=== PATIENT | female | born 1955 | race Caucasian/White ===

== ENCOUNTER 2016-11-18 13:58 | Emergency (ER) | payer MEDICARE, MEDICAID ==
--- NOTE | 2016-11-18 15:15 | EDM.PDOC ---
ED HPI GENERAL MEDICAL PROBLEM - General Chief Complaint: Cardiovascular Problem Stated Complaint: RAPID HEART RATE Time Seen by Provider: 11/18/16 15:00 Source of Information: Reports: Patient, RN Notes Reviewed History Limitations: Reports: No Limitations - History of Present Illness INITIAL COMMENTS - FREE TEXT/NARRATIVE: 61 year old female presents to the ED with complaints of palpitations and racing heart rate. She has a history of SVT and was started on cardizem. She reported 3 episodes of palpitations in the past few weeks. Today the symptoms lasted around 10-15 minutes. Symptoms resolved upon arrival to the ER. She experiences pain with the palpitations but the pain resolves with the palpitations. She missed a cardizem dose two days ago. She denies dyspnea or shortness of breath. She was recently treated with antibiotics for an upper respiratory infection. No fever or chills, nausea, vomiting, diarrhea, or abdominal pain. Her PCP is Mariam Daniels. 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 She was supposed to have a Holter monitor applied 1-2 weeks ago but rescheduled. No history of CAD or [place]. She has not had a recent stress test. Chest Pain Score (Numeric/FACES): 4 - Related Data Allergies Allergy/AdvReac Type Severity Reaction Status Date / Time No Known Allergies Allergy Verified 11/18/16 14:21 Home Meds: Home Meds Albuterol [Ventolin HFA] 2 puff INH Q4H PRN 08/11/14 [History] LORazepam [Ativan] 1 mg PO Q8H PRN 08/11/14 [History] Ibuprofen 600 mg PO DAILY PRN 02/02/16 [History] Diltiazem HCl [Cardizem LA] 120 mg PO DAILY #30 tab.sr.24h 03/21/16 [Rx] Venlafaxine [Effexor] 75 mg PO DAILY 03/21/16 [History] Past Medical History HEENT History: Reports: Impaired Vision Other HEENT History: wears eyeglasses Cardiovascular History: Reports: Other (See Below) Other Cardiovascular History: states HR was over 200 BPM. Respiratory History: Reports: Asthma, Bronchitis, Recurrent, COPD, Pneumonia, Recurrent Other Respiratory History: states was tested for sleep apnea, "and I'm fine" states does not need C-PAP. 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 Hematologic History: Reports: Iron Deficiency Other Hematologic History: during . - Infectious Disease History Infectious Disease History: Reports: Measles, Mumps - Past Surgical History HEENT Surgical History: Reports: Myringotomy w Tube(s) Female Surgical History: Reports: Section, Hysterectomy Musculoskeletal Surgical History: Reports: Other (See Below) Other Musculoskeletal Surgeries/Procedures:: ankle surgery due to arthritis, pinned. Social & Family History - Tobacco Use Smoking Status *Q: Former Smoker Years of Tobacco use: 47 Packs/Tins Daily: 0.5 Used Tobacco, but Quit: Yes Month Tobacco Last Used: Oct - Caffeine Use Caffeine Use: Reports: None Other Caffeine Use: drinks 1/2 caff coffee - Alcohol Use Days Per Week of Alcohol Use: 1 Number of Drinks Per Day: 1 Total Drinks Per Week: 1 - Recreational Drug Use Recreational Drug Use: No ED ROS GENERAL - Review of Systems Review Of Systems: See Below Constitutional: Reports: No Symptoms. Denies: Fever, Chills, Diaphoresis HEENT: Reports: No Symptoms Respiratory: Reports: No Symptoms. Denies: Shortness of Breath, Cough Cardiovascular: Reports: Chest Pain, Palpitations. Denies: Blood Pressure Problem, Dyspnea on Exertion, Edema, Lightheadedness, Syncope GI/Abdominal: Reports: No Symptoms. Denies: Abdominal Pain, Diarrhea, Nausea, Vomiting Neurological: Reports: No Symptoms ED EXAM, GENERAL - Physical Exam Exam: See Below Exam Limited By: No Limitations General Appearance: Alert, No Apparent Distress, Obese Respiratory/Chest: No Respiratory Distress, Lungs Clear, Normal Breath Sounds, No Accessory Muscle Use, Chest Non-Tender Cardiovascular: Normal Peripheral Pulses, Regular Rate, Rhythm, No Edema, No Murmur GI/Abdominal: Normal Bowel Sounds, Soft, Non-Tender Neurological: Alert, Oriented, Normal Cognition Skin Exam: Warm, Dry, Intact EKG INTERPRETATION EKG Date: 11/18/16 Time: 14:33 Rhythm: NSR Rate (Beats/Min): 94 [place]: Normal P-Wave: Present QRS: Normal ST-T: Normal QT: Normal EKG Interpretation Comments: EKG read by Dr. Santa. QT is mildly prolonged. Otherwise normal ECG. Course - Vital Signs Last Recorded V/S: Last Vital Signs Temp 98.2 F 11/18/16 14:21 Pulse 100 11/18/16 17:10 Resp 16 11/18/16 17:10 BP 143/58 H 11/18/16 17:10 Pulse Ox 97 11/18/16 17:10 - Orders/Labs/Meds Orders: Active Orders 24 hr Category Date Time Status Cardiac Monitoring [RC] . DIRECTED Care 11/18/16 15:13 Active EKG 12 Lead [EKG Documentation Completion] [RC] STAT Care 11/18/16 14:30 Active Holter Monitor 48 Hours [RC] .PRN Care 11/18/16 15:55 Active CXR [Chest 1V Frontal] [CR] Stat Exams 11/18/16 15:13 Taken Labs: Laboratory Tests 11/18/16 11/18/16 Range/Units 14:20 14:20 WBC 7.94 (3.98-10.04) K/mm3 RBC 4.54 (3.98-5.22) M/mm3 Hgb 13.6 (11.2-15.7) gm/L Hct 40.5 (34.1-44.9) % MCV 89.2 (79.4-94.8) fl MCH 30.0 (25.6-32.2) pg MCHC 33.6 (32.2-35.5) g/dl RDW Std Deviation 49.5 H (36.4-46.3) fL Plt Count 328 (182-369) K/mm3 MPV 9.7 (9.4-12.3) fl Neut % (Auto) 47.7 (34.0-71.1) % Lymph % (Auto) 42.3 (19.3-51.7) % [place] % (Auto) 6.8 (4.7-12.5) % Eos % (Auto) 2.4 (0.7-5.8) Baso % (Auto) 0.5 (0.1-1.2) % Neut # (Auto) 3.79 (1.56-6.13) K/mm3 Lymph # (Auto) 3.36 (1.18-3.74) K/mm3 [place] # (Auto) 0.54 H (0.24-0.36) K/mm3 Eos # (Auto) 0.19 (0.04-0.36) K/mm3 Baso # (Auto) 0.04 (0.01-0.08) K/mm3 Sodium 140 (136-145) mEq/L Potassium 3.6 (3.5-5.1) mEq/L Chloride 104 (98-107) mEq/L Carbon Dioxide 23 (21-32) mEq/L Anion Gap 16.6 H (5-15) BUN 19 H (7-18) mg/dL Creatinine 0.9 (0.55-1.02) mg/dL Est Cr Clr Drug Dosing 52.57 mL/min Estimated GFR (MDRD) > 60 (>60) mL/min BUN/Creatinine Ratio 21.1 H (14-18) Glucose 160 H (74-106) mg/dL Calcium 9.0 (8.5-10.1) mg/dL Total Bilirubin 0.4 (0.2-1.0) mg/dL AST 19 (15-37) U/L ALT 41 (14-59) U/L Alkaline Phosphatase 62 (46-116) U/L Troponin I < 0.017 (0.00-0.056) ng/mL Total Protein 7.6 (6.4-8.2) g/dl Albumin 3.6 (3.4-5.0) g/dl Globulin 4.0 gm/dL Albumin/Globulin Ratio 0.9 L (1-2) - Re-Assessments/Exams Free Text/Narrative Re-Assessment/Exam: CBC is normal. CMP reveals anion gap of 16, BUN 19, creatinine 0.9, glucose 160. Troponin is WNL. Chest x-ray is negative for acute findings. No infiltrates or effusions. There is a nodule in the mid to upper lung. CT of chest is recommended by Dr. Gomez. Upon reviewing the chart, the patient is aware of the nodule and was encouraged to f/u for outpatient study. The patient was in NSR upon arrival to the ED. She will be placed on Holter monitor with instructions to f/u with Mariam Daniels later this week for the results. She was educated on return precautions. I feel the patient would benefit from Cardiology referral which she can discuss with her PCP after the results of her Holter monitor. She was encouraged to take her medication as prescribed and to avoid missing any doses. Discharge instructions as documented. Departure - Departure Time of Disposition: 16:53 Disposition: Home, Self-Care 01 Condition: Good Clinical Impression: Palpitations Instructions: Palpitations, [id number] Referrals: Mariam Lewis PA-C [Primary Care Provider] - Forms: ED Department Discharge Additional Instructions: Return to ER with recurrent or persistent palpitations Heart monitor instructions per Respiratory Therapy Follow-up with Mariam Daniels on or Saturday for the results of your Holter monitor. Continue your medications as prescribed - My Orders Last 24 Hours: My Active Orders 11/18/16 14:30 EKG 12 Lead [EKG Documentation Completion] [RC] STAT 11/18/16 15:13 Cardiac Monitoring [RC] . DIRECTED CXR [Chest 1V Frontal] [CR] Stat 11/18/16 15:55 Holter Monitor 48 Hours [RC] .PRN - Assessment/Plan Last 24 Hours: My Active Orders 11/18/16 14:30 EKG 12 Lead [EKG Documentation Completion] [RC] STAT 11/18/16 15:13 Cardiac Monitoring [RC] . DIRECTED CXR [Chest 1V Frontal] [CR] Stat 11/18/16 15:55 Holter Monitor 48 Hours [RC] .PRN
[2016-11-18 17:25] VITALS: BP 143/58
--- NOTE | 2016-11-19 10:08 | CR ---
Chest: Portable view of the chest was obtained. Comparison: Previous chest x-ray of 10/29/16. Heart size appears within normal limits for portable technique. Upper mediastinum is within normal limits. Nodule is identified within the right midlung which correlates to a calcification on chest CT of 02/13/16 compatible with granuloma. No acute infiltrates are seen. Bony structures are grossly intact. Impression: 1. Incidental findings. Nothing acute is appreciated. Diagnostic code #2
== END 2016-11-18 17:10 | disposition home or self-care (01) ==
LOC: JD.ED 13:58
DX: R00.2 Palpitations (principal); J44.9 Chronic obstructive pulmonary disease, unspecified; F41.9 Anxiety disorder, unspecified; F32.9 Major depressive disorder, single episode, unspecified; Z79.899 Other long term (current) drug therapy; Z96.22 Myringotomy tube(s) status; Z90.710 Acquired absence of both cervix and uterus; Z87.01 Personal history of pneumonia (recurrent); Z87.440 Personal history of urinary (tract) infections; Z87.891 Personal history of nicotine dependence
CPT/HCPCS: 36415; 71010; 71010-26; 80053; 84484; 85025; 93005; 93225; 93226; 99285; 99285-25

== ENCOUNTER 2017-04-17 11:53 | Emergency (ER) | payer MEDICARE, MEDICAID ==
[2017-04-17 12:14] VITALS: BP 149/88
--- NOTE | 2017-04-17 14:11 | EDM.PDOCBH ---
ED HPI GENERAL MEDICAL PROBLEM - General Chief Complaint: Behavioral/Psych Stated Complaint: NEEDS ANTIDEPRESSANT ADJUSTED SENT BY CLINIC Time Seen by Provider: 04/17/17 13:20 Source of Information: Reports: Patient History Limitations: Reports: No Limitations - History of Present Illness INITIAL COMMENTS - FREE TEXT/NARRATIVE: 61-year-old female presents to ER with complaints of seeing "shadow people" for 3 weeks. Patient states she was diagnosed back in 2002 with depression, anxiety , and PTSD, but was never diagnosed for this specific problem. Patient states she tried to get into see her provider Nina Villatoro but was unable to get an appointment until May. She was referred to [facility] [place] and was unable to reach a provider as she states the phones were down. Patient states she was willing to wait for an appointment at the clinic, but the voices have become constant and are worsening and states she needs a change in medication immediately. The clinic told her for immediate assistance to come to the ED. Regarding the episodes, she does state that there are periods of time where the she does not see the "shadow people" and that is usually when she is with her grandson. She is not sure if there is a specific event that may have caused her to start seeing the shadow people she does say that there has been some stress with her [id number] regarding her grandson that may have contributed to the start of this episode. 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 The patient is currently taking Effexor 75 mg extended release. Patient is not on any other medication as she states she had not told her provider about the "shadow people". Patient states she was seeing a therapist, Valorie, weekly for a few months but stopped seeing her in July 2016 due to episcopalian differences. She is interested in seeing another therapist. Currently she is not experiencing any suicidal ideation or homicidal ideation. She denies any issues with sleep or recreational drug use. She admits to having 3 cups of coffee in the morning daily, smokes 7-8 cigarettes per day, and will have 1-2 beers socially. No other symptoms at this time. Onset: Gradual Onset Date: 03/27/17 Duration: Week(s): (3), Getting Worse - Related Data Allergies Allergy/AdvReac Type Severity Reaction Status Date / Time No Known Allergies Allergy Verified 04/17/17 12:10 Home Meds: Home Meds Albuterol [Ventolin HFA] 2 puff INH Q4H PRN 08/11/14 [History] LORazepam [Ativan] 1 mg PO Q8H PRN 08/11/14 [History] Ibuprofen 600 mg PO DAILY PRN 02/02/16 [History] Diltiazem HCl [Cardizem LA] 120 mg PO DAILY #30 tab.sr.24h 03/21/16 [Rx] Venlafaxine [Effexor] 75 mg PO DAILY 03/21/16 [History] Haloperidol [Haldol] 2 mg PO BEDTIME #30 tab 04/17/17 [Rx] Past Medical History HEENT History: Reports: Impaired Vision Other HEENT History: wears eyeglasses Cardiovascular History: Reports: Other (See Below) Other Cardiovascular History: states HR was over 200 BPM. Respiratory History: Reports: Asthma, Bronchitis, Recurrent, COPD, Pneumonia, Recurrent Other Respiratory History: states was tested for sleep apnea, "and I'm fine" states does not need C-PAP. 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 Hematologic History: Reports: Iron Deficiency Other Hematologic History: during . - Infectious Disease History Infectious Disease History: Reports: Measles, Mumps - Past Surgical History HEENT Surgical History: Reports: Myringotomy w Tube(s) Female Surgical History: Reports: Section, Hysterectomy Musculoskeletal Surgical History: Reports: Other (See Below) Other Musculoskeletal Surgeries/Procedures:: ankle surgery due to arthritis, pinned. Social & Family History - Tobacco Use Smoking Status *Q: Former Smoker Years of Tobacco use: 47 Packs/Tins Daily: 0.4 Used Tobacco, but Quit: No Month Tobacco Last Used: Oct - Caffeine Use Caffeine Use: Reports: Coffee Other Caffeine Use: drinks 1/2 caff coffee - Alcohol Use Days Per Week of Alcohol Use: 1 Number of Drinks Per Day: 1 Total Drinks Per Week: 1 - Recreational Drug Use Recreational Drug Use: No ED ROS GENERAL - Review of Systems Review Of Systems: See Below Constitutional: Reports: No Symptoms HEENT: Reports: No Symptoms Respiratory: Reports: Cough (chronic) Cardiovascular: Reports: No Symptoms Neurological: Reports: No Symptoms Psychiatric: Reports: Anxiety, Hallucinations. Denies: Depression (does not feel depressed at this time), Homicidal Ideation, Suicidal Ideation ED EXAM, BEHAVIORAL HEALTH - Physical Exam Exam: See Below Exam Limited By: No Limitations General Appearance: Alert, Anxious, Mild Distress Respiratory/Chest: No Respiratory Distress Neurological: Alert Psychiatric: Alert, Oriented, Tearful, Visual Hallucinations. No: Depressed Mood, Homicidal Thoughts, Suicidal Plan, Suicidal Thoughts Skin Exam: Normal color COURSE, BEHAVIORAL HEALTH COMP - Course Vital Signs: Last Vital Signs Temp 36.2 C 04/17/17 12:12 Pulse 84 04/17/17 12:12 Resp 18 04/17/17 12:12 BP 149/88 H 04/17/17 12:12 Pulse Ox 97 04/17/17 12:12 Re-Assessment/Re-Exam: 14:00 Discussed the case with Dr. Meehan, psychiatry national accounts sales. Recommend either seroquel 50 mg by mouth at bedtime if she has difficulty sleeping or Haldol 2-5 mg by mouth at bedtime. Recommend follow-up with Nina. Patient reports she is not having much difficulty sleeping. Will try her on Haldol 2 mg by mouth at hour sleep. This history, physical exam and note was completed by Maeve Bucio PA-C. I have seen the patient and was present during the consultation with Dr. Meehan. I agree with the history and physical exam as documented by Maeve. Departure - Departure Time of Disposition: 14:08 Disposition: Home, Self-Care 01 Condition: Fair Clinical Impression: Hallucination - Discharge Information Prescriptions: Haloperidol [Haldol] 2 mg PO BEDTIME #30 tab Instructions: Psychosis Referrals: Mariam Lewis PA-C [Primary Care Provider] - Forms: ED Department Discharge Additional Instructions: Start the Haldol 1 tab at 7 PM nightly. Make sure you are drinking plenty of fluids. Avoid excessive caffeine. Follow up with Nina [place] as soon as you are able to. If you need refills of your medications or are unable to see Nina right away follow-up with your primary care provider. Please return to the ER for symptoms change or worsen.
== END 2017-04-17 14:20 | disposition home or self-care (01) ==
LOC: JD.ED 11:53
DX: R44.3 Hallucinations, unspecified (principal); Z79.899 Other long term (current) drug therapy; Z87.891 Personal history of nicotine dependence
CPT/HCPCS: 99284; 99285

== ENCOUNTER 2017-11-23 17:30 | Emergency (ER) | payer MEDICARE, MEDICAID ==
--- NOTE | 2017-11-23 18:04 | EDM.PDOC ---
ED HPI GENERAL MEDICAL PROBLEM - General Chief Complaint: Cardiovascular Problem Stated Complaint: [facility] Time Seen by Provider: 11/23/17 17:45 Source of Information: Reports: Patient History Limitations: Reports: No Limitations - History of Present Illness INITIAL COMMENTS - FREE TEXT/NARRATIVE: Patient is a 62 year old female brought in by EMS. Upon examination patients heart rate is 96. Blood pressure is 120/88. Patient appears to be mildly anxious. She presents to the ED via EMS. Prior to arrival patient had been having some issues with anxiety, racing heart, pressure to the mid chest that radiates into her right arm, and the sensation of her throat is closing off. Patient had been working in the yard around the house all day. Consumed 4 beers prior to onset of symptoms. Patient states she went outside to have a smoke when symptoms came about. Patient has a history of SVT in the past. She attempted to bear down twice at home with no change. EMS arrived and gave the patient 1x Nitroglycerin the patient states the chest pressure/pain resolved. At no time did the patient become diaphoretic, nauseated, dizzy, lightheaded, and or have the sensation she was going to pass out. She's had similar symptoms in the past with no significant findings related to her heart. She did have a appointment scheduled to see airplane electrician from [facility] coming up. This was canceled since the provider is moving to a different hospital. Currently the patient has no chest discomfort. No shortness of breath. No dizziness, no light headedness, no nausea or vomiting. Nor does she complain of diaphoresis, abdominal pain, acid reflux, dysuria, or any additional complaints. There is no numbness or tingling to her extremities. Patient has been really stressed recently. States her dog recently in September 2017. She buried one of her sons 7 years ago. She is a . She lives by herself and is lonely. Patient is a history of SVT, chest pain, shortness breath, anxiety, and hypertension. She currently takes Ativan, ibuprofen, Cardizem, and albuterol. Treatments WARD ASSISTANT: Reports: Other (see below) Other Treatments WARD ASSISTANT: NTG enroute - Related Data Allergies Allergy/AdvReac Type Severity Reaction Status Date / Time No Known Allergies Allergy Verified 04/17/17 12:10 Home Meds: Home Meds Albuterol [Ventolin HFA] 2 puff INH Q4H PRN 08/11/14 [History] LORazepam [Ativan] 1 mg PO Q8H PRN 08/11/14 [History] Ibuprofen 600 mg PO DAILY PRN 02/02/16 [History] Diltiazem HCl [Cardizem LA] 120 mg PO DAILY #30 tab.sr.24h 03/21/16 [Rx] Past Medical History HEENT History: Reports: Impaired Vision Other HEENT History: wears eyeglasses Cardiovascular History: Reports: Other (See Below) Other Cardiovascular History: states HR was over 200 BPM. Respiratory History: Reports: Asthma, Bronchitis, Recurrent, COPD, Pneumonia, Recurrent Other Respiratory History: states was tested for sleep apnea, "and I'm fine" states does not need C-PAP. Gastrointestinal History: Reports: Irritable Bowel Syndrome Genitourinary History: Reports: UTI, Recurrent HARMONIC ANALYST History: Reports: Endometriosis, Musculoskeletal History: Reports: Arthritis, Back Pain, Chronic, Fracture Psychiatric History: Reports: Anxiety, Depression, PTSD Other Psychiatric History: states had fear of leaving house at one time and has gotten better. Hematologic History: Reports: Iron Deficiency Other Hematologic History: during . - Infectious Disease History Infectious Disease History: Reports: Measles, Mumps - Past Surgical History HEENT Surgical History: Reports: Myringotomy w Tube(s) Female Surgical History: Reports: Section, Hysterectomy Musculoskeletal Surgical History: Reports: Other (See Below) Other Musculoskeletal Surgeries/Procedures:: ankle surgery due to arthritis, pinned. Social & Family History - Tobacco Use Smoking Status *Q: Current Every Day Smoker Years of Tobacco use: 47 Packs/Tins Daily: 0.5 - Caffeine Use Caffeine Use: Reports: Coffee Other Caffeine Use: drinks 1/2 caff coffee - Recreational Drug Use Recreational Drug Use: No ED ROS GENERAL - Review of Systems Review Of Systems: See Below Constitutional: Reports: No Symptoms HEENT: Reports: No Symptoms Respiratory: Reports: No Symptoms. Denies: Wheezing, Pleuritic Chest Pain, Cough, Sputum Cardiovascular: Reports: No Symptoms GI/Abdominal: Reports: No Symptoms Musculoskeletal: Reports: No Symptoms Neurological: Reports: No Symptoms Psychiatric: Reports: No Symptoms ED EXAM, GENERAL - Physical Exam Exam: See Below Exam Limited By: No Limitations General Appearance: Alert, WD/WN, Anxious Eye Exam: Bilateral Eye: Normal Inspection Ears: Hearing Grossly Normal Nose: Normal Inspection Throat/Mouth: Normal Voice, No Airway Compromise Neck: Normal Inspection, Supple Respiratory/Chest: No Respiratory Distress, Lungs Clear, Normal Breath Sounds, No Accessory Muscle Use, Chest Non-Tender Cardiovascular: Normal Peripheral Pulses, Regular Rate, Rhythm, No Murmur Peripheral Pulses: 2+: Radial (L), Radial (R) GI/Abdominal: Normal Bowel Sounds, Soft, Non-Tender, No Organomegaly, No Distention Back Exam: Normal Inspection. No: CVA Tenderness (L), CVA Tenderness (R) Extremities: Normal Inspection, Normal Range of Motion, Non-Tender, No Pedal Edema, Normal Capillary Refill Neurological: Alert, Oriented, CN II-XII Intact, Normal Cognition Psychiatric: Normal Affect, Normal Mood Skin Exam: Warm, Dry, Intact, Normal Color, No Rash Course - Vital Signs Last Recorded V/S: Last Vital Signs Temp 97.9 F 11/23/17 18:43 Pulse 93 11/23/17 18:43 Resp 20 11/23/17 18:43 BP 118/76 11/23/17 18:43 Pulse Ox 94 L 11/23/17 18:43 - Orders/Labs/Meds Orders: Active Orders 24 hr Category Date Time Status Cardiac Monitoring [RC] . DIRECTED Care 11/23/17 18:02 Active EKG Documentation Completion [RC] STAT Care 11/23/17 18:03 Active Chest 1V Frontal [CR] Stat Exams 11/23/17 18:03 Taken Labs: Laboratory Tests 11/23/17 11/23/17 11/23/17 Range/Units 18:15 18:20 18:20 WBC 10.59 H (3.98-10.04) K/mm3 RBC 4.99 (3.98-5.22) M/mm3 Hgb 14.8 (11.2-15.7) gm/L Hct 43.6 (34.1-44.9) % MCV 87.4 (79.4-94.8) fl MCH 29.7 (25.6-32.2) pg MCHC 33.9 (32.2-35.5) g/dl RDW Std Deviation 47.8 H (36.4-46.3) fL Plt Count 294 (182-369) K/mm3 MPV 9.9 (9.4-12.3) fl Neut % (Auto) 65.3 (34.0-71.1) % Lymph % (Auto) 25.6 (19.3-51.7) % [place] % (Auto) 6.8 (4.7-12.5) % Eos % (Auto) 1.6 (0.7-5.8) Baso % (Auto) 0.4 (0.1-1.2) % Neut # (Auto) 6.92 H (1.56-6.13) K/mm3 Lymph # (Auto) 2.71 (1.18-3.74) K/mm3 [place] # (Auto) 0.72 H (0.24-0.36) K/mm3 Eos # (Auto) 0.17 (0.04-0.36) K/mm3 Baso # (Auto) 0.04 (0.01-0.08) K/mm3 PT 10.3 (9.5-12.1) SECONDS INR 0.94 APTT 28 (24-31) SECONDS Sodium (136-145) mEq/L Potassium (3.5-5.1) mEq/L Chloride (98-107) mEq/L Carbon Dioxide (21-32) mEq/L Anion Gap (5-15) BUN (7-18) mg/dL Creatinine (0.55-1.02) mg/dL Est Cr Clr Drug Dosing mL/min Estimated GFR (MDRD) (>60) mL/min BUN/Creatinine Ratio (14-18) Glucose (80-115) mg/dL Calcium (8.5-10.1) mg/dL Magnesium (1.8-2.4) mg/dl Total Bilirubin (0.2-1.0) mg/dL AST (15-37) U/L ALT (14-59) U/L Alkaline Phosphatase (46-116) U/L Troponin I (0.00-0.056) ng/mL C-Reactive Protein (<1.0) mg/dL Total Protein (6.4-8.2) g/dl Albumin (3.4-5.0) g/dl Globulin gm/dL Albumin/Globulin Ratio (1-2) TSH 3rd Generation (0.358-3.74) uIU/mL Urine Color Light yellow (Yellow) Urine Appearance Clear (Clear) Urine pH 6.0 (5.0-8.0) Ur Specific [place] 1.010 (1.005-1.030) Urine Protein Negative (Negative) Urine Glucose (UA) Negative (Negative) Urine Ketones Negative (Negative) Urine Occult Blood Negative (Negative) Urine Nitrite Negative (Negative) Urine Bilirubin Negative (Negative) Urine Urobilinogen 0.2 (0.2-1.0) Ur Leukocyte Esterase Negative (Negative) Urine RBC Not seen (0-5) /hpf Urine WBC Not seen (0-5) /hpf Ur Epithelial Cells 0-5 (0-5) /hpf Urine Bacteria Not seen (FEW) /hpf Urine Mucus Not seen (FEW) /hpf 11/23/17 Range/Units 18:20 WBC (3.98-10.04) K/mm3 RBC (3.98-5.22) M/mm3 Hgb (11.2-15.7) gm/L Hct (34.1-44.9) % MCV (79.4-94.8) fl MCH (25.6-32.2) pg MCHC (32.2-35.5) g/dl RDW Std Deviation (36.4-46.3) fL Plt Count (182-369) K/mm3 MPV (9.4-12.3) fl Neut % (Auto) (34.0-71.1) % Lymph % (Auto) (19.3-51.7) % [place] % (Auto) (4.7-12.5) % Eos % (Auto) (0.7-5.8) Baso % (Auto) (0.1-1.2) % Neut # (Auto) (1.56-6.13) K/mm3 Lymph # (Auto) (1.18-3.74) K/mm3 [place] # (Auto) (0.24-0.36) K/mm3 Eos # (Auto) (0.04-0.36) K/mm3 Baso # (Auto) (0.01-0.08) K/mm3 PT (9.5-12.1) SECONDS INR APTT (24-31) SECONDS Sodium 140 (136-145) mEq/L Potassium 3.3 L (3.5-5.1) mEq/L Chloride 102 (98-107) mEq/L Carbon Dioxide 23 (21-32) mEq/L Anion Gap 18.3 H (5-15) BUN 18 (7-18) mg/dL Creatinine 0.9 (0.55-1.02) mg/dL Est Cr Clr Drug Dosing 51.92 mL/min Estimated GFR (MDRD) > 60 (>60) mL/min BUN/Creatinine Ratio 20.0 H (14-18) Glucose 84 (80-115) mg/dL Calcium 9.4 (8.5-10.1) mg/dL Magnesium 1.9 (1.8-2.4) mg/dl Total Bilirubin 0.3 (0.2-1.0) mg/dL AST 20 (15-37) U/L ALT 35 (14-59) U/L Alkaline Phosphatase 78 (46-116) U/L Troponin I < 0.017 (0.00-0.056) ng/mL C-Reactive Protein 0.6 (<1.0) mg/dL Total Protein 8.0 (6.4-8.2) g/dl Albumin 3.9 (3.4-5.0) g/dl Globulin 4.1 gm/dL Albumin/Globulin Ratio 1.0 (1-2) TSH 3rd Generation 4.883 H (0.358-3.74) uIU/mL Urine Color (Yellow) Urine Appearance (Clear) Urine pH (5.0-8.0) Ur Specific [place] (1.005-1.030) Urine Protein (Negative) Urine Glucose (UA) (Negative) Urine Ketones (Negative) Urine Occult Blood (Negative) Urine Nitrite (Negative) Urine Bilirubin (Negative) Urine Urobilinogen (0.2-1.0) Ur Leukocyte Esterase (Negative) Urine RBC (0-5) /hpf Urine WBC (0-5) /hpf Ur Epithelial Cells (0-5) /hpf Urine Bacteria (FEW) /hpf Urine Mucus (FEW) /hpf Meds: Medications Discontinued Medications Generic Name Dose Route Start Last Admin Trade Name Freq PRN Reason Stop Dose Admin Lorazepam 0.5 mg 11/23/17 18:13 11/23/17 18:33 Ativan IVPUSH 11/23/17 18:14 0.5 mg ONETIME ONE Administration Potassium Chloride 40 meq 09/22/18 19:31 11/23/17 19:40 Klor-Con M20 PO 11/23/17 19:32 40 meq ONETIME ONE Administration - Re-Assessments/Exams Free Text/Narrative Re-Assessment/Exam: Examination patient is pain-free. Vital signs are stable. She is feeling mildly anxious. Ativan ordered IVP. Initial labs and studies include: CBC, chem 14, coag studies, magnesium, troponin, TSH, UA, chest x-ray one view, and EKG. EKG sinus rhythm at a rate of [address] changes noted. Labs reviewed: White blood cell count 10.59, hemoglobin 14.8, platelet count 294 , potassium mildly low at 3.3, AG 18.3, creatinine 0.9, magnesium 1.9, troponin less than 0.017, CRP normal. TSH mildly elevated at 4.883. UA was negative. I ordered a second troponin to be obtained at 0. 2015 Reassessment, vital signs are stable. Patient has no complaints at this time. Discussed results of labs, chest x-ray, EKG with the patient. I informed her that I would like to obtain a second troponin 3 hours from initial draw. Patient refuses and would like to be discharged home. I am not completely convinced it is related to her heart. She has risk factors including: htn, smoking, and 1st degree relative with heart disease. Although more likely related to a anxiety attack I cannot completely rule out cardiac involvement. Patient has had stress tests in the past with nothing conclusive. She will see her PCP this coming Saturday to Saturday to schedule another stress test with echocardiogram. The patient remained hemodynamically stable while under my care in the E.D. I discussed the concerning symptoms for which to return to the E.D. with the patient. The patient verbalized understanding. All questions were answered. Departure - Departure Time of Disposition: 20:29 Disposition: Home, Self-Care 01 Condition: Good Clinical Impression: Chest pain of uncertain etiology, Anxiety attack, Elevated TSH Instructions: Nonspecific Chest Pain Referrals: Mariam Lewis PA-C [Primary Care Provider] - Forms: ED Department Discharge Additional Instructions: As discussed you have risk factors for heart disease including: Hypertension, smoking, and first degree relatives with severe heart disease. Although not convinced this is related to your heart I believe further testing is required. Symptoms may have been precipitated by anxiety attack but again this is a diagnosis of exclusion. Please see your PCP first part of next week for reevaluation and schedule a stress test. Make an appointment with a airplane electrician as previously instructed for further evaluation. Please return back to the ED if you experience any new or worsening symptoms. Refrain from alcohol use. Stop smoking. In addition TSh level was mildly high thus further testing is required to rule out hypothyroidism. - My Orders Last 24 Hours: My Active Orders 11/23/17 18:02 Cardiac Monitoring [RC] . DIRECTED 11/23/17 18:03 EKG Documentation Completion [RC] STAT Chest 1V Frontal [CR] Stat - Assessment/Plan Last 24 Hours: My Active Orders 11/23/17 18:02 Cardiac Monitoring [RC] . DIRECTED 11/23/17 18:03 EKG Documentation Completion [RC] STAT Chest 1V Frontal [CR] Stat
[2017-11-23] MEDS ORDERED: LORazepam 2 MG/ML SDV IVPUSH ONE (18:13)
[2017-11-23 18:45] VITALS: BP 118/76
[2017-11-23] MEDS ORDERED: Potassium Chloride 20 MEQ Tab.ER PO ONE (19:31)
--- NOTE | 2017-11-25 07:14 | CR ---
Chest: Portable view of the chest was obtained. Comparison: Prior chest x-ray of 11/18/16. Heart size and mediastinum are within normal limits for portable technique. Nodule is noted within the right mid to lower lung which appears calcified. This is compatible with granuloma. Lungs otherwise are clear. Bony structures are grossly intact. Impression: 1. Incidental findings. Nothing acute is seen on portable chest x-ray. Diagnostic code #2
== END 2017-11-23 20:41 | disposition home or self-care (01) ==
LOC: SUPCPDRO 17:30 → JD.ED 17:30
DX: R07.9 Chest pain, unspecified (principal); F41.9 Anxiety disorder, unspecified; R94.6 Abnormal results of thyroid function studies; I10 Essential (primary) hypertension; F17.210 Nicotine dependence, cigarettes, uncomplicated
CPT/HCPCS: 36415; 71045; 80053; 81001; 83735; 84443; 84484; 85025; 85610; 85730; 86140; 93005; 96374; 99285; A9270; J2060

== ENCOUNTER 2017-12-07 12:03 | Emergency (ER) | payer MEDICARE, MEDICAID ==
[2017-12-07 12:13] VITALS: BP 129/111
[2017-12-07] MEDS ORDERED: Aspirin 81 MG Tab.Chew PO ONE (12:31)
[2017-12-07] MEDS ORDERED: LORazepam 2 MG/ML SDV IVPUSH ONE (12:31)
--- NOTE | 2017-12-07 12:35 | EDM.PDOC ---
ED HPI GENERAL MEDICAL PROBLEM - General Chief Complaint: Chest Pain Stated Complaint: CHEST PAIN AND DIZZY Time Seen by Provider: 12/07/17 12:21 Source of Information: Reports: Patient History Limitations: Reports: No Limitations - History of Present Illness INITIAL COMMENTS - FREE TEXT/NARRATIVE: Patient is a 62-year-old female with a history of frequent palpitations presents ED complaining of sudden onset of chest discomfort with fluttering feeling to her chest. She came short of breath with exertion and dizzy/ lightheaded with sensation she was going to pass out. This came on while reading the paper today. Symptoms came on approximately 20 minutes prior to arrival. With admission to the ED she has no symptoms. She's had similar symptoms in the past. The fluttering sensation in the chest lasted approximately 10 minutes. She does not feel anxious and/or under any more stress recently. She had a stress test yesterday but was unable to complete due to claustrophobia they had to stop. She has appointment with coat repair inspector at [facility] this month. Again patient has no chest tightness. She does feel weak after onset of symptoms. She has no history of coronary disease. 1st degree relatives positive for heart disease, mother in her 40s, and dad as well. She has had a Holter monitor in the past but had to return in before the desired length of time since it was bothering her. She continues to take diltiazem, Effexor, lorazepam, and 2 inhalers. She does continue to smoke. Chest Pain Score (Numeric/FACES): 7 - Related Data Allergies Allergy/AdvReac Type Severity Reaction Status Date / Time No Known Allergies Allergy Verified 12/07/17 12:08 Home Meds: Home Meds Albuterol [Ventolin HFA] 2 puff INH Q4H PRN 08/11/14 [History] LORazepam [Ativan] 1 mg PO Q8H PRN 08/11/14 [History] Ibuprofen 600 mg PO DAILY PRN 02/02/16 [History] Diltiazem HCl [Cardizem LA] 120 mg PO DAILY #30 tab.sr.24h 03/21/16 [Rx] Past Medical History HEENT History: Reports: Impaired Vision Other HEENT History: wears eyeglasses Cardiovascular History: Reports: Hypertension, Other (See Below) Other Cardiovascular History: states HR was over 200 BPM. Respiratory History: Reports: Asthma, Bronchitis, Recurrent, COPD, Pneumonia, Recurrent Other Respiratory History: states was tested for sleep apnea, "and I'm fine" states does not need C-PAP. Gastrointestinal History: Reports: Irritable Bowel Syndrome Genitourinary History: Reports: UTI, Recurrent RADIOLOGIST History: Reports: Endometriosis, Musculoskeletal History: Reports: Arthritis, Back Pain, Chronic, Fracture Psychiatric History: Reports: Anxiety, Depression, PTSD Other Psychiatric History: states had fear of leaving house at one time and has gotten better. Hematologic History: Reports: Iron Deficiency Other Hematologic History: during . - Infectious Disease History Infectious Disease History: Reports: Measles, Mumps - Past Surgical History HEENT Surgical History: Reports: Myringotomy w Tube(s) Female Surgical History: Reports: Section, Hysterectomy, Salpingo- Oophorectomy Musculoskeletal Surgical History: Reports: Other (See Below) Other Musculoskeletal Surgeries/Procedures:: ankle surgery due to arthritis, pinned. Social & Family History - Tobacco Use Smoking Status *Q: Current Every Day Smoker Years of Tobacco use: 47 Packs/Tins Daily: 0.5 - Caffeine Use Caffeine Use: Reports: Coffee Other Caffeine Use: drinks 1/2 caff coffee - Recreational Drug Use Recreational Drug Use: No ED ROS GENERAL - Review of Systems Review Of Systems: See Below Constitutional: Denies: Fever, Chills, Decreased Appetite Respiratory: Reports: Shortness of Breath (With exertion), Pleuritic Chest Pain , Cough (Intermittent nonproductive). Denies: Wheezing, Sputum, Hemoptysis Cardiovascular: Reports: Chest Pain, Dyspnea on Exertion, Palpitations. Denies : Blood Pressure Problem, Claudication, Edema, Lightheadedness, Orthopnea, PND, Syncope GI/Abdominal: Reports: No Symptoms : Reports: No Symptoms Musculoskeletal: Reports: Arm Pain (right). Denies: Neck Pain, Shoulder Pain, Back Pain Skin: Denies: No Symptoms Neurological: Reports: Dizziness, Weakness. Denies: Confusion, Headache, Numbness, Syncope, Tingling, Difficulty Walking Psychiatric: Reports: No Symptoms ED EXAM, GENERAL - Physical Exam Exam: See Below (Symptoms have completely resolved.) Exam Limited By: No Limitations General Appearance: Alert, WD/WN, No Apparent Distress Ears: Hearing Grossly Normal Nose: Normal Inspection Throat/Mouth: Normal Voice, No Airway Compromise Neck: Normal Inspection, Supple Respiratory/Chest: No Respiratory Distress, Lungs Clear, Normal Breath Sounds, No Accessory Muscle Use, Other (left anterior chest with palpation. ) Cardiovascular: Normal Peripheral Pulses, Regular Rate, Rhythm, No Murmur ( obvious) Peripheral Pulses: 1+: Posterior Tibial (L), Posterior Tibial (R), 2+: Radial (L ), Radial (R) GI/Abdominal: Normal Bowel Sounds, Soft, Non-Tender, No Organomegaly, No Distention Back Exam: Normal Inspection Extremities: Normal Inspection, Normal Range of Motion, Non-Tender, No Pedal Edema, Normal Capillary Refill Neurological: Alert, Oriented, CN II-XII Intact, Normal Cognition Psychiatric: Normal Affect, Normal Mood Skin Exam: Warm, Dry, Intact, Normal Color, No Rash Course - Vital Signs Last Recorded V/S: Last Vital Signs Temp 97.9 F 12/07/17 12:08 Pulse 88 12/07/17 12:08 Resp 21 H 12/07/17 12:08 BP 129/111 H 12/07/17 12:08 Pulse Ox 99 12/07/17 12:08 - Orders/Labs/Meds Orders: Active Orders 24 hr Category Date Time Status EKG 12 Lead [EKG Documentation Completion] [RC] STAT Care 12/07/17 12:13 Active CXR [Chest 1V Frontal] [CR] Stat Exams 12/07/17 12:30 Taken Labs: Laboratory Tests 12/07/17 12/07/17 12/07/17 Range/Units 12:20 12:20 14:11 WBC 8.13 (3.98-10.04) K/mm3 RBC 4.73 (3.98-5.22) M/mm3 Hgb 14.1 (11.2-15.7) gm/L Hct 41.9 (34.1-44.9) % MCV 88.6 (79.4-94.8) fl MCH 29.8 (25.6-32.2) pg MCHC 33.7 (32.2-35.5) g/dl RDW Std Deviation 49.1 H (36.4-46.3) fL Plt Count 313 (182-369) K/mm3 MPV 9.6 (9.4-12.3) fl Neutrophils % (Manual) 61 H (40-60) % Band Neutrophils % 1 (0-10) % Lymphocytes % (Manual) 29 (20-40) % Atypical Lymphs % 0 % Monocytes % (Manual) 9 (2-10) % Eosinophils % (Manual) 0 L (0.7-5.8) % Basophils % (Manual) 0 L (0.1-1.2) Platelet Estimate Adequate RBC Morph Comment Normal Sodium 137 (136-145) mEq/L Potassium 3.8 (3.5-5.1) mEq/L Chloride 102 (98-107) mEq/L Carbon Dioxide 25 (21-32) mEq/L Anion Gap 13.8 (5-15) BUN 18 (7-18) mg/dL Creatinine 1.0 (0.55-1.02) mg/dL Est Cr Clr Drug Dosing 46.72 mL/min Estimated GFR (MDRD) 56 (>60) mL/min BUN/Creatinine Ratio 18.0 (14-18) Glucose 98 (80-115) mg/dL Calcium 9.1 (8.5-10.1) mg/dL Total Bilirubin 0.4 (0.2-1.0) mg/dL AST 12 L (15-37) U/L ALT 23 (14-59) U/L Alkaline Phosphatase 69 (46-116) U/L Troponin I < 0.017 (0.00-0.056) ng/mL C-Reactive Protein 0.5 (<1.0) mg/dL Total Protein 7.8 (6.4-8.2) g/dl Albumin 3.8 (3.4-5.0) g/dl Globulin 4.0 gm/dL Albumin/Globulin Ratio 1.0 (1-2) TSH 3rd Generation 2.966 (0.358-3.74) uIU/mL Urine Color Yellow (Yellow) Urine Appearance Clear (Clear) Urine pH 6.0 (5.0-8.0) Ur Specific [place] 1.015 (1.005-1.030) Urine Protein Negative (Negative) Urine Glucose (UA) Negative (Negative) Urine Ketones Negative (Negative) Urine Occult Blood Negative (Negative) Urine Nitrite Negative (Negative) Urine Bilirubin Negative (Negative) Urine Urobilinogen 0.2 (0.2-1.0) Ur Leukocyte Esterase Negative (Negative) Urine RBC Not seen (0-5) /hpf Urine WBC 0-5 (0-5) /hpf Ur Epithelial Cells 0-5 (0-5) /hpf Urine Bacteria Not seen (FEW) /hpf Urine Mucus Not seen (FEW) /hpf 12/07/17 Range/Units 15:32 WBC (3.98-10.04) K/mm3 RBC (3.98-5.22) M/mm3 Hgb (11.2-15.7) gm/L Hct (34.1-44.9) % MCV (79.4-94.8) fl MCH (25.6-32.2) pg MCHC (32.2-35.5) g/dl RDW Std Deviation (36.4-46.3) fL Plt Count (182-369) K/mm3 MPV (9.4-12.3) fl Neutrophils % (Manual) (40-60) % Band Neutrophils % (0-10) % Lymphocytes % (Manual) (20-40) % Atypical Lymphs % % Monocytes % (Manual) (2-10) % Eosinophils % (Manual) (0.7-5.8) % Basophils % (Manual) (0.1-1.2) Platelet Estimate RBC Morph Comment Sodium (136-145) mEq/L Potassium (3.5-5.1) mEq/L Chloride (98-107) mEq/L Carbon Dioxide (21-32) mEq/L Anion Gap (5-15) BUN (7-18) mg/dL Creatinine (0.55-1.02) mg/dL Est Cr Clr Drug Dosing mL/min Estimated GFR (MDRD) (>60) mL/min BUN/Creatinine Ratio (14-18) Glucose (80-115) mg/dL Calcium (8.5-10.1) mg/dL Total Bilirubin (0.2-1.0) mg/dL AST (15-37) U/L ALT (14-59) U/L Alkaline Phosphatase (46-116) U/L Troponin I < 0.017 (0.00-0.056) ng/mL C-Reactive Protein (<1.0) mg/dL Total Protein (6.4-8.2) g/dl Albumin (3.4-5.0) g/dl Globulin gm/dL Albumin/Globulin Ratio (1-2) TSH 3rd Generation (0.358-3.74) uIU/mL Urine Color (Yellow) Urine Appearance (Clear) Urine pH (5.0-8.0) Ur Specific [place] (1.005-1.030) Urine Protein (Negative) Urine Glucose (UA) (Negative) Urine Ketones (Negative) Urine Occult Blood (Negative) Urine Nitrite (Negative) Urine Bilirubin (Negative) Urine Urobilinogen (0.2-1.0) Ur Leukocyte Esterase (Negative) Urine RBC (0-5) /hpf Urine WBC (0-5) /hpf Ur Epithelial Cells (0-5) /hpf Urine Bacteria (FEW) /hpf Urine Mucus (FEW) /hpf Meds: Medications Discontinued Medications Generic Name Dose Route Start Last Admin Trade Name Freq PRN Reason Stop Dose Admin Aspirin 324 mg 12/07/17 12:31 12/07/17 12:41 Aspirin PO 12/07/17 12:32 324 mg ONETIME ONE Administration Sodium Chloride 1,000 mls @ 125 mls/hr 12/07/17 12:45 12/07/17 12:40 Normal Saline IV 125 mls/hr ASDIRECTED ANGIE Administration Lorazepam 0.5 mg 12/07/17 12:31 12/07/17 12:40 Ativan IVPUSH 12/07/17 12:32 0.5 mg ONETIME ONE Administration - Re-Assessments/Exams Free Text/Narrative Re-Assessment/Exam: Patient currently has no symptoms. Feeling mildly anxious with shortness of breath with exertion. Vital signs are stable. She is not hypoxic and/or heart rate greater 100. Wells Criteria for PE 0.0 point. Low risk group 1.3% chance of PE and in ED population. IV established with normal saline and Ativan 0.5 mg IVP. Aspirin 324 mg by mouth ordered. EKG revealed: Sinus rhythm rate 88 with NJ interval 1 [address] No acute ST changes noted. Initial labs and studies include: CBC, chem 14, CRP, troponin, UA, TSH, and chest x-ray one view. Second troponin will be obtained 3 hours from previous blood work. Labs reviewed. Patient feels a lot better after receiving the ativan. 12/07/17 16:18 Second troponin came back negative. Reassessment, patient states she's feeling much better after receiving the Ativan. She's had no further symptoms. She is ready be discharged home. Patient has a history of SVT and anxiety. Unclear at this point if the episode was brought on by SVT and/or the anxiety. Upon admission she had no symptoms. Chest pain was noted to left anterior chest reproducible with palpation. 2 troponins were negative. EKG was negative. She felt significantly better after receiving the Ativan. She is ready be discharged home. Discharge instructions as documented. The patient remained hemodynamically stable while under my care in the E.D. I discussed the concerning symptoms for which to returnto the E.D. with the patient/family. The patient/family verbalized understanding. All questions were answered. Heart score 3 points, low score, risk of Mace of 0.9-1.7%. Departure - Departure Time of Disposition: 16:24 Disposition: Home, Self-Care 01 Condition: Good Clinical Impression: Heart palpitations, Atypical chest pain Instructions: Nonspecific Chest Pain, Palpitations, [id number] Referrals: Mariam Lewis PA-C [Primary Care Provider] - Forms: ED Department Discharge Additional Instructions: Please keep appointment with coat repair inspector as scheduled for in the month for reevaluation. EKG and 2 troponins were both negative. Suspect cause of complaint is more likely anxiety induced. Although this is a diagnosis of exclusion. I do request further evaluation and workup by cardiology. Please take all your home medications as prescribed. No driving this evening since receiving a sedative medication. Please return back to ED if you develope any new or worsening symptoms. Suggest start taking aspirin 81 mg every day. - My Orders Last 24 Hours: My Active Orders 12/07/17 12:30 CXR [Chest 1V Frontal] [CR] Stat - Assessment/Plan Last 24 Hours: My Active Orders 12/07/17 12:30 CXR [Chest 1V Frontal] [CR] Stat
[2017-12-07] MEDS ORDERED: Sodium Chloride 0.9% 1,000 ML IV SCH (12:45)
--- NOTE | 2017-12-09 07:46 | CR ---
Chest: Portable view of the chest was obtained. Comparison: Prior chest x-ray of 11/23/17. Heart is slightly enlarged. Tortuous thoracic aorta is seen. Lungs are clear with no acute parenchymal change. Bony structures are grossly intact. Impression: 1. Slight cardiomegaly. Other incidental finding. 2. Nothing acute is appreciated on portable chest x-ray. Diagnostic code #2
== END 2017-12-07 16:38 | disposition home or self-care (01) ==
LOC: JD.ED 12:03
DX: R07.89 Other chest pain (principal); R00.2 Palpitations; I10 Essential (primary) hypertension; F17.210 Nicotine dependence, cigarettes, uncomplicated
CPT/HCPCS: 36415; 71045; 80053; 81001; 84443; 84484; 85007; 85027; 86140; 93005; 96361; 96374; 99285; A9270; J2060; J7040; 93010; 99284

== ENCOUNTER 2018-03-21 11:45 | Emergency (ER) | payer MEDICARE, MEDICAID ==
[2018-03-21 11:53] VITALS: BP 132/90
[2018-03-21] MEDS ORDERED: Sodium Chloride 0.9% 10 ML Syringe FLUSH PRN (12:22)
[2018-03-21] MEDS ORDERED: HYDROmorphone 1 MG/ML Syringe IVPUSH ONE (12:22)
--- NOTE | 2018-03-21 12:28 | EDM.PDOC ---
ED HPI GENERAL MEDICAL PROBLEM - General Chief Complaint: Chest Pain Stated Complaint: CHEST PAIN/L ARM PAIN Time Seen by Provider: 03/21/18 11:58 Source of Information: Reports: Patient History Limitations: Reports: No Limitations - History of Present Illness INITIAL COMMENTS - FREE TEXT/NARRATIVE: Patient is a 62 year old female who presents to the E.D. complaining of left- sided anterior chest, axilla, left lateral chest discomfort along with left lateral neck pain. She states the discomfort radiates down her left arm. This started depression 7:00 this morning. The discomfort awoke her from sleep. States her arm feels heavy. This is abnormal for her. Normally she has discomfort like this is on her right side. She does have some cervical issues and sees a chiropractor on a normal basis. She states at this point does feel like she needs to have an adjustment. Discomfort is described as being constant , sharp, and waxes and wanes in intensity. Increased with deep breathing and also movement of her left arm any type of rotational movements. There has been no known activities or trauma that precipitated this. She states it has decreased with rest. She is normally short of breath with exertion which is unchanged. She has a chronic cough secondary to long history of smoking. This is unchanged as well. There's been no documented fever, chills, nausea vomiting , abdominal pain, palpitations, dysuria, no sitting only to extremities, and or focal neurological deficits. She has no headache noted or vision abnormalities. She has been complaining of some acid reflux for the past 2 days which is not unusual. She has been experiencing some episodes of dizziness for the past few months as well. She has had a stress test in the past withgood findings noted on her EKG. Unfortunately she was not able to complete the stress test since she cannot tolerate the imaging required secondary to claustrophobia. She has no history of DVT or PE. No recent history of any hemoptysis. She does carry a history of anxiety, hypertension, COPD, sleep apnea, IBS, chronic back and neck pain, depression, and PTSD. Treatments RN NEW GRADUATE: Reports: Other (see below) Other Treatments RN NEW GRADUATE: none Left Chest Pain Score (Numeric/FACES): 7 - Related Data Allergies Allergy/AdvReac Type Severity Reaction Status Date / Time No Known Allergies Allergy Verified 12/07/17 12:08 Home Meds: Home Meds Albuterol [Ventolin HFA] 2 puff INH Q4H PRN 08/11/14 [History] LORazepam [Ativan] 1 mg PO Q8H PRN 08/11/14 [History] Ibuprofen 600 mg PO DAILY PRN 02/02/16 [History] Diltiazem HCl [Cardizem LA] 120 mg PO DAILY #30 tab.sr.24h 03/21/16 [Rx] Venlafaxine [Effexor] 75 mg PO DAILY 03/21/18 [History] Past Medical History HEENT History: Reports: Impaired Vision Other HEENT History: wears eyeglasses Cardiovascular History: Reports: Hypertension, Other (See Below) Other Cardiovascular History: states HR was over 200 BPM. Respiratory History: Reports: Asthma, Bronchitis, Recurrent, COPD, Pneumonia, Recurrent Other Respiratory History: states was tested for sleep apnea, "and I'm fine" states does not need C-PAP. 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 Hematologic History: Reports: Iron Deficiency Other Hematologic History: during . - Infectious Disease History Infectious Disease History: Reports: Measles, Mumps - Past Surgical History HEENT Surgical History: Reports: Myringotomy w Tube(s) Female Surgical History: Reports: Section, Hysterectomy, Salpingo- Oophorectomy Musculoskeletal Surgical History: Reports: Other (See Below) Other Musculoskeletal Surgeries/Procedures:: ankle surgery due to arthritis, pinned. Social & Family History - Tobacco Use Smoking Status *Q: Current Every Day Smoker Years of Tobacco use: 45 Packs/Tins Daily: 0.5 - Caffeine Use Caffeine Use: Reports: Coffee Other Caffeine Use: drinks 1/2 caff coffee - Recreational Drug Use Recreational Drug Use: No ED ROS GENERAL - Review of Systems Review Of Systems: See Below Constitutional: Denies: Fever, Chills, Malaise, Decreased Appetite Respiratory: Reports: Pleuritic Chest Pain, Cough, Sputum. Denies: Shortness of Breath, Wheezing, Hemoptysis Cardiovascular: Reports: Chest Pain, Dyspnea on Exertion (chronic). Denies: Blood Pressure Problem, Lightheadedness, Palpitations, PND, Syncope GI/Abdominal: Reports: No Symptoms Musculoskeletal: Reports: Neck Pain (left lateral neck pain, chronic, unchanged. ), Back Pain (left lateral/anterior chest pain with palpation. pain with palpation of the axilla. no bruising, rash, bony abnormalities, swelling present. ) Skin: Reports: No Symptoms Neurological: Reports: No Symptoms ED EXAM, GENERAL - Physical Exam Exam: See Below Exam Limited By: No Limitations General Appearance: Alert, WD/WN, No Apparent Distress Eye Exam: Bilateral Eye: Normal Inspection Ears: Hearing Grossly Normal Nose: Normal Inspection Throat/Mouth: Normal Voice, No Airway Compromise Head: Atraumatic, Normocephalic Neck: Normal Inspection, Supple, Full Range of Motion, Tender Lateral (left lateral muscle pain) Respiratory/Chest: No Respiratory Distress, Lungs Clear, Normal Breath Sounds, No Accessory Muscle Use, Other (tenderness to the anterior/axilla/lateral chest. increased with palpation. No swelling, rash, bony bony abnormalities noted.) Cardiovascular: Normal Peripheral Pulses, Regular Rate, Rhythm, No Edema, No JVD , No Murmur, No Rub Peripheral Pulses: 2+: Radial (L), Radial (R), Posterior Tibial (L), Posterior Tibial (R) GI/Abdominal: Normal Bowel Sounds, Soft, Non-Tender, No Organomegaly, No Distention Back Exam: Normal Inspection, Full Range of Motion. No: CVA Tenderness (L), CVA Tenderness (R), Paraspinal Tenderness, Vertebral Tenderness Extremities: Normal Inspection, Non-Tender, No Pedal Edema, Normal Capillary Refill Neurological: Alert, Oriented, CN II-XII Intact, Normal Cognition, No Motor/ Sensory Deficits Psychiatric: Normal Affect, Normal Mood Skin Exam: Warm, Dry, Intact, Normal Color, No Rash Course - Vital Signs Last Recorded V/S: Last Vital Signs Temp 96.6 F 03/21/18 11:52 Pulse 80 03/21/18 11:52 Resp 15 03/21/18 11:52 BP 132/90 03/21/18 11:52 Pulse Ox 98 03/21/18 11:52 - Orders/Labs/Meds Orders: Active Orders 24 hr Category Date Time Status EKG 12 Lead [EKG Documentation Completion] [RC] STAT Care 03/21/18 12:36 Active Peripheral IV Care [RC] . DIRECTED Care 03/21/18 12:23 Active Peripheral IV Insertion Adult [OM.PC] Routine Oth 03/21/18 12:22 Ordered Labs: Laboratory Tests 03/21/18 03/21/18 03/21/18 Range/Units 12:10 12:10 12:10 WBC 7.80 (3.98-10.04) K/mm3 RBC 4.96 (3.98-5.22) M/mm3 Hgb 14.6 (11.2-15.7) gm/L Hct 44.3 (34.1-44.9) % MCV 89.3 (79.4-94.8) fl MCH 29.4 (25.6-32.2) pg MCHC 33.0 (32.2-35.5) g/dl RDW Std Deviation 50.0 H (36.4-46.3) fL Plt Count 347 (182-369) K/mm3 MPV 10.0 (9.4-12.3) fl Neutrophils % (Manual) 54 (40-60) % Band Neutrophils % 0 (0-10) % Lymphocytes % (Manual) 41 H (20-40) % Atypical Lymphs % 0 % Monocytes % (Manual) 2 (2-10) % Eosinophils % (Manual) 2 (0.7-5.8) % Basophils % (Manual) 1 (0.1-1.2) Platelet Estimate Adequate RBC Morph Comment Normal PT 10.1 (9.5-12.1) SECONDS INR 0.93 APTT 27 (24-31) SECONDS Sodium 139 (136-145) mEq/L Potassium 3.9 (3.5-5.1) mEq/L Chloride 102 (98-107) mEq/L Carbon Dioxide 26 (21-32) mEq/L Anion Gap 14.9 (5-15) BUN 15 (7-18) mg/dL Creatinine 0.8 (0.55-1.02) mg/dL Est Cr Clr Drug Dosing 58.41 mL/min Estimated GFR (MDRD) > 60 (>60) mL/min BUN/Creatinine Ratio 18.8 H (14-18) Glucose 112 (80-115) mg/dL Calcium 9.3 (8.5-10.1) mg/dL Total Bilirubin 0.4 (0.2-1.0) mg/dL AST 12 L (15-37) U/L ALT 22 (14-59) U/L Alkaline Phosphatase 70 (46-116) U/L Troponin I < 0.017 (0.00-0.056) ng/mL C-Reactive Protein 0.9 (<1.0) mg/dL Total Protein 8.0 (6.4-8.2) g/dl Albumin 3.8 (3.4-5.0) g/dl Globulin 4.2 gm/dL Albumin/Globulin Ratio 0.9 L (1-2) 03/21/18 Range/Units 15:35 WBC (3.98-10.04) K/mm3 RBC (3.98-5.22) M/mm3 Hgb (11.2-15.7) gm/L Hct (34.1-44.9) % MCV (79.4-94.8) fl MCH (25.6-32.2) pg MCHC (32.2-35.5) g/dl RDW Std Deviation (36.4-46.3) fL Plt Count (182-369) K/mm3 MPV (9.4-12.3) fl Neutrophils % (Manual) (40-60) % Band Neutrophils % (0-10) % Lymphocytes % (Manual) (20-40) % Atypical Lymphs % % Monocytes % (Manual) (2-10) % Eosinophils % (Manual) (0.7-5.8) % Basophils % (Manual) (0.1-1.2) Platelet Estimate RBC Morph Comment PT (9.5-12.1) SECONDS INR APTT (24-31) SECONDS Sodium (136-145) mEq/L Potassium (3.5-5.1) mEq/L Chloride (98-107) mEq/L Carbon Dioxide (21-32) mEq/L Anion Gap (5-15) BUN (7-18) mg/dL Creatinine (0.55-1.02) mg/dL Est Cr Clr Drug Dosing mL/min Estimated GFR (MDRD) (>60) mL/min BUN/Creatinine Ratio (14-18) Glucose (80-115) mg/dL Calcium (8.5-10.1) mg/dL Total Bilirubin (0.2-1.0) mg/dL AST (15-37) U/L ALT (14-59) U/L Alkaline Phosphatase (46-116) U/L Troponin I < 0.017 (0.00-0.056) ng/mL C-Reactive Protein (<1.0) mg/dL Total Protein (6.4-8.2) g/dl Albumin (3.4-5.0) g/dl Globulin gm/dL Albumin/Globulin Ratio (1-2) Meds: Medications Discontinued Medications Generic Name Dose Route Start Last Admin Trade Name Freq PRN Reason Stop Dose Admin Hydromorphone HCl 0.25 mg 03/21/18 12:22 03/21/18 12:36 Dilaudid IVPUSH 03/21/18 12:23 0.25 mg ONETIME ONE Administration Sodium Chloride 1,000 mls @ 125 mls/hr 03/21/18 12:30 03/21/18 12:36 Normal Saline IV 125 mls/hr ASDIRECTED ANGIE Administration Ketorolac Tromethamine 15 mg 03/21/18 13:44 03/21/18 13:49 Toradol IVPUSH 03/21/18 13:45 15 mg ONETIME ONE Administration Ondansetron HCl 4 mg 03/21/18 12:46 03/21/18 14:55 Zofran IVPUSH 03/21/18 12:47 Not Given ONETIME ONE Sodium Chloride 10 ml 03/21/18 12:22 03/21/18 12:39 Saline Flush FLUSH 10 ml ASDIRECTED PRN Administration Keep Vein Open - Re-Assessments/Exams Free Text/Narrative Re-Assessment/Exam: VSS. Patient is in no acute distress. Patient complains of pain to the left anterior/axilla/lateral chest increased with palpation and taking a deep breath. She has a history of anxiety with similar symptoms involving the right side of her upper body. Currently states she has left-sided neck discomfort that requires chiropractor adjustment but has not really make an appointment. Pain to the chest increases with taking a deep breath and palpation sharp in nature relieved with rest. She's been no more short of breath with exertion. Chest pain does not worsen with exertion. There has been no nausea or vomiting, diaphoresis, or any episodes of palpitations. Of note she's been taking high doses of ibuprofen for her neck discomfort. She's reported some acid reflux lately. She has no history of PE or DVT. She is no more short of breath than usual. Denies any hemoptysis. She has no findings on examination concerning for blood clots to the lower extremities. IV will be established with Dilaudid 0.25 mg IVP. Normal saline 1 25 mL/h ordered. Initial labs and studies include: CBC, chem 14, CRP, coags studies, troponin stat and one time troponin, urinalysis, ekg, and chest x-ray. EKG sinus rhythm at a rate of [address] changes noted. Chest x-ray revealed no acute abnormalities. Slight cardiomegaly. No sitting change from previous chest x-ray. Labs reviewed: CBC and CBC were essentially normal. Troponin normal. CRP normal. 1340 reassessment, vital signs are stable. Patient still complains of some left anterior/axilla/back discomfort. States her left arm hurts as well. She had no significant relief from the therapies above. I will order low dose toradol. 03/21/18 14:15 reassessment, vital signs are stable. Patient states the discomfort to her chest, axilla, left lateral chest, and arm have dissipated after receiving the Toradol. She believes the pain may have been attributed to the blood pressure cuff to the left arm. 03/21/18 16:17 second troponin came back negative. I suspect current complaint is more musculoskeletal in nature. Patient has undergone stress test in the past but unable 8 to tolerate the imaging required. I will have the patient follow-up with PCP with directions to refrain from any activities that cause worsening discomfort. Return precautions discussed with patient. Patient had no questions or concerns and agreed with plan. Departure - Departure Time of Disposition: 16:18 Disposition: Home, Self-Care 01 Condition: Good Clinical Impression: Left-sided chest wall pain Instructions: Chest Wall Pain, [id number], Pain Without a Known Cause Referrals: Mariam Lewis PA-C [Primary Care Provider] - Forms: ED Department Discharge Additional Instructions: Please refrain from any activities that cause worsening discomfort. Follow-up with your PCP this coming week for reevaluation. Suggest taking Aleve 1-2 tabs twice a day, Tylenol 650 mg every 6 hours, as needed for pain. Please return back to the ED if you develop any new or worsening symptoms. - My Orders Last 24 Hours: My Active Orders 03/21/18 12:22 Peripheral IV Insertion Adult [OM.PC] Routine 03/21/18 12:23 Peripheral IV Care [RC] . DIRECTED 03/21/18 12:36 EKG 12 Lead [EKG Documentation Completion] [RC] STAT - Assessment/Plan Last 24 Hours: My Active Orders 03/21/18 12:22 Peripheral IV Insertion Adult [OM.PC] Routine 03/21/18 12:23 Peripheral IV Care [RC] . DIRECTED 03/21/18 12:36 EKG 12 Lead [EKG Documentation Completion] [RC] STAT
[2018-03-21] MEDS ORDERED: Sodium Chloride 0.9% 1,000 ML IV SCH (12:30)
[2018-03-21] MEDS ORDERED: Ondansetron 4 MG/2 ML SDV IVPUSH ONE (12:46)
--- NOTE | 2018-03-21 13:15 | CR ---
Chest: Portable view of the chest was obtained. Comparison: Prior chest x-ray of 12/07/17. Heart size is slightly enlarged. Mild tortuosity of the thoracic aorta is seen. Small nodule is noted within the right mid to lower lung which is compatible with granuloma. Lungs are otherwise clear. Bony structures are grossly intact. Impression: 1. Slight cardiomegaly. Nothing acute is seen. No significant change is seen from previous chest x-ray. Diagnostic code #2
[2018-03-21] MEDS ORDERED: Ketorolac 30 MG/ML SDV IVPUSH ONE (13:44)
== END 2018-03-21 16:25 | disposition home or self-care (01) ==
LOC: JD.ED 11:45
DX: R07.89 Other chest pain (principal); M54.2 Cervicalgia; I10 Essential (primary) hypertension; F32.9 Major depressive disorder, single episode, unspecified; J44.9 Chronic obstructive pulmonary disease, unspecified; F17.210 Nicotine dependence, cigarettes, uncomplicated; Z79.899 Other long term (current) drug therapy; Z87.440 Personal history of urinary (tract) infections; Z96.22 Myringotomy tube(s) status; Z90.710 Acquired absence of both cervix and uterus; Z98.890 Other specified postprocedural states
CPT/HCPCS: 36415; 71045; 80053; 84484; 85007; 85027; 85610; 85730; 86140; 93005; 96361; 96374; 96375; 99285; J1170; J1885; J7040

== ENCOUNTER 2023-02-06 19:01 | Emergency (ER) | payer MEDICAID, MEDICARE ==
[2023-02-06] MEDS ORDERED: Aspirin 81 MG Tab.Chew PO ONE (19:19)
[2023-02-06] MEDS ORDERED: Sodium Chloride 0.9% 10 ML Syringe FLUSH PRN (19:19)
[2023-02-06 19:39] LABS: BASOPHILS ABSOLUTE AUTO 0.1 K/mm3 (0.0-0.2); BASOPHILS PERCENT AUTO 0.7 % (0.0-1.0); EOSINOPHILS ABSOLUTE AUTO 0.2 K/mm3 (0.0-0.4); EOSINOPHILS PERCENT AUTO 2.1 % (0.0-6.0); HEMATOCRIT 45.4 % (37.0-47.0); HEMOGLOBIN 15.2 gm/dl (12.0-16.0); IMMATURE GRAN ABSOLUTE AUTO 0.02 K/mm3 (0.00-0.05); IMMATURE GRAN PERCENT AUTO 0.2 % (0.0-0.4); LYMPHOCYTES ABSOLUTE AUTO 2.1 K/mm3 (1.0-4.8); MEAN CORPUSCULAR HEMOGLOBIN 29.9 pg (28.0-32.0); MEAN CORPUSCULAR HGB CONC 33.5 g/dl (32.0-36.0); MEAN CORPUSCULAR VOLUME 89.4 fl (83.0-99.0); MEAN PLATELET VOLUME 8.9 fl (9.4-12.3); MONOCYTES ABSOLUTE AUTO 0.5 K/mm3 (0.0-0.8); MONOCYTES PERCENT AUTO 6.3 % (0.0-8.0); NEUTROPHILS ABSOLUTE AUTO 5.4 K/mm3 (1.8-7.7); NEUTROPHILS PERCENT AUTO 65.7 % (41.0-71.0); PLATELET COUNT,PLT 303 K/mm3 (150-400); RED BLOOD CELL COUNT 5.08 M/mm3 (4.10-5.30); WHITE BLOOD CELL COUNT,WBC 8.24 K/mm3 (3.9-11.3)
[2023-02-06 20:00] LABS: D-DIMER QUANTITATIVE 0.24 mg/L (0.19-0.50); INR 0.96; PROTHROMBIN TIME 10.3 SECONDS (9.7-12.0)
[2023-02-06 20:09] LABS: A/G RATIO 0.8 (1-2); ALBUMIN 3.3 g/dl (3.4-5.0); ANION GAP 15.6 (5-15); BILIRUBIN TOTAL 0.3 mg/dL (0.2-1.0); BUN/CREATININE RATIO 14.4 (14-18); CALCIUM 8.8 mg/dL (8.5-10.1); CREATININE 0.9 mg/dL (0.55-1.02); EST CRCL DRUG DOSING (CG) 48.63 mL/min; ETHANOL BLOOD MEDICAL 0.03 gm% (0.00); MAGNESIUM 1.5 mg/dL (1.8-2.4); POTASSIUM,K 3.6 mEq/L (3.5-5.1); PROTEIN TOTAL,TP 7.5 g/dl (6.4-8.2)
[2023-02-06] MEDS ORDERED: Adenosine 6 MG/2 ML SDV ONE (21:57)
[2023-02-06] MEDS ORDERED: Adenosine 12 MG/4 ML SDV ONE (21:57)
[2023-02-06] MEDS ORDERED: Diltiazem 180 MG Cap.CD PO ONE (22:27)
[2023-02-06] MEDS ORDERED: Magnesium Sulfate/Water 2 GM/50 ML BAG IV ONE (22:29)
[2023-02-06] MEDS ORDERED: Adenosine 6 MG/2 ML SDV IVPUSH ONE (23:59)
[2023-02-07] MEDS ORDERED: Adenosine 6 MG/2 ML SDV IVPUSH ONE (00:01)
[2023-02-07 01:08] VITALS: BP 132/66; PULSE 77
== END 2023-02-07 00:25 | disposition home or self-care (01) ==
LOC: JD.ED 19:01
DX: R07.9 Chest pain, unspecified (principal); I47.10 Supraventricular tachycardia, unspecified; I10 Essential (primary) hypertension; F17.210 Nicotine dependence, cigarettes, uncomplicated; Z79.899 Other long term (current) drug therapy; Z90.710 Acquired absence of both cervix and uterus
CPT/HCPCS: 36415; 71045; 80053; 80307; 83735; 83880; 84484; 85025; 85379; 85610; 93005; 96365; 96366; 96375; 99285; A9270; J0153; J3475; J3490; 93010; 99284

== ENCOUNTER 2023-10-27 11:17 | Emergency (ER) | payer MEDICARE, MEDICAID ==
[2023-10-27 17:08] VITALS: BP 125/72; PULSE 75
== END 2023-10-27 14:18 ==
LOC: JD.ED 11:17
DX: S30.0XXA Contusion of lower back and pelvis, initial encounter (principal); I10 Essential (primary) hypertension; J44.9 Chronic obstructive pulmonary disease, unspecified; Z79.899 Other long term (current) drug therapy; X58.XXXA Exposure to other specified factors, initial encounter
CPT/HCPCS: 72100; 72100-26; 72170; 72170-26; 72220; 72220-26; 74019; 74019-26; 99284

== ENCOUNTER 2024-04-30 13:35 | Emergency (ER) | payer MEDICARE, MEDICAID ==
[2024-04-30 13:52] VITALS: BP 154/83; PULSE 87
== END 2024-04-30 14:30 | disposition left against medical advice (07) ==
LOC: JD.ED 13:35
DX: Z53.21 Procedure and treatment not carried out due to patient leaving prior to being seen by health care provider (principal)

== ENCOUNTER 2024-05-08 02:04 | Emergency (ER) | payer MEDICARE, MEDICAID ==
[2024-05-08 02:29] LABS: BASOPHILS ABSOLUTE AUTO 0.1 K/mm3 (0.0-0.2); BASOPHILS PERCENT AUTO 0.7 % (0.0-1.0); EOSINOPHILS ABSOLUTE AUTO 0.2 K/mm3 (0.0-0.4); EOSINOPHILS PERCENT AUTO 1.8 % (0.0-6.0); HEMATOCRIT 45.9 % (37.0-47.0); HEMOGLOBIN 15.5 gm/dl (12.0-16.0); IMMATURE GRAN ABSOLUTE AUTO 0.02 K/mm3 (0.00-0.05); IMMATURE GRAN PERCENT AUTO 0.2 % (0.0-0.4); LYMPHOCYTES ABSOLUTE AUTO 3.3 K/mm3 (1.0-4.8); LYMPHOCYTES PERCENT AUTO 33.3 % (24.0-44.0); MEAN CORPUSCULAR HEMOGLOBIN 29.8 pg (28.0-32.0); MEAN CORPUSCULAR HGB CONC 33.8 g/dl (32.0-36.0); MEAN CORPUSCULAR VOLUME 88.1 fl (83.0-99.0); MEAN PLATELET VOLUME 9.4 fl (9.4-12.3); MONOCYTES ABSOLUTE AUTO 0.5 K/mm3 (0.0-0.8); MONOCYTES PERCENT AUTO 5.5 % (0.0-8.0); NEUTROPHILS ABSOLUTE AUTO 5.8 K/mm3 (1.8-7.7); NEUTROPHILS PERCENT AUTO 58.5 % (41.0-71.0); PLATELET COUNT,PLT 275 K/mm3 (150-400); RED BLOOD CELL COUNT 5.21 M/mm3 (4.10-5.30); WHITE BLOOD CELL COUNT,WBC 9.85 K/mm3 (3.9-11.3)
[2024-05-08] MEDS: Sodium Chloride 0.9% 10 ML Syringe FLUSH PRN ×2 (02:32)
[2024-05-08] MEDS: LORazepam 2 MG/ML SDV IVPUSH ONE ×3 (02:32→03:20)
[2024-05-08 02:56] LABS: LACTIC ACID 1.4 mmol/L (0.4-2.0)
[2024-05-08 03:03] LABS: A/G RATIO 0.8 (1-2); ALANINE AMINOTRANSFERASE,ALT 29 U/L (14-59); ALBUMIN 3.5 g/dl (3.4-5.0); ALKALINE PHOSPHATASE 67 U/L (46-116); ASPARTATE AMNIOTRANSFERASE,AST 18 U/L (15-37); BILIRUBIN TOTAL 0.6 mg/dL (0.2-1.0); BLOOD UREA NITROGEN,BUN 10 mg/dL (7-18); BUN/CREATININE RATIO 11.1 (14-18); CALCIUM 9.2 mg/dL (8.5-10.1); CARBON DIOXIDE,CO2 28 mEq/L (21-32); CHLORIDE,CL 100 mEq/L (98-107); CREATININE 0.9 mg/dL (0.55-1.02); ESTIMATED GFR 70 mL/min (>60); GLUCOSE RANDOM 121 mg/dL (70-99); MAGNESIUM 2.1 mg/dL (1.8-2.4); PROTEIN TOTAL,TP 7.7 g/dl (6.4-8.2); SODIUM,NA 136 mEq/L (136-145); TROPONIN I HIGH SENSITIVITY 5 pg/mL (<=51); TSH 7.276 uIU/mL (0.358-3.74)
[2024-05-08] MEDS: Iopamidol 755 Mg/ML 100 ML Bottle IVPUSH ONE (03:12)
[2024-05-08] MEDS: Sodium Chloride 0.9% 45 ML IV SCH (03:12)
[2024-05-08] MEDS: LORazepam 2 MG/ML SDV ONE (03:16)
[2024-05-08 03:38] LABS: T4 FREE 1.08 ng/dL (0.76-1.46)
[2024-05-08 05:47] VITALS: BP 121/50; PULSE 66
== END 2024-05-08 06:16 | disposition home or self-care (01) ==
LOC: JD.ED 02:04
DX: I16.1 Hypertensive emergency (principal); I10 Essential (primary) hypertension; J44.89 Other specified chronic obstructive pulmonary disease; Z79.51 Long term (current) use of inhaled steroids; Z79.899 Other long term (current) drug therapy; Z90.710 Acquired absence of both cervix and uterus
CPT/HCPCS: 36415; 71045; 71275; 74177; 80053; 83605; 83735; 83880; 84439; 84443; 84484; 85025; 93005; 96374; 96376; 99285; J2060; Q9967; 93010; 99284

== ENCOUNTER 2024-05-31 11:40 | Emergency (ER) | payer MEDICARE, MEDICAID ==
[2024-05-31] MEDS ORDERED: Sodium Chloride 0.9% 10 ML Syringe FLUSH PRN (12:12)
[2024-05-31] MEDS: Albuterol/Ipratropium 3.0-0.5 MG/3 ML Neb Soln NEB ONE (12:27)
[2024-05-31 12:38] LABS: BASOPHILS ABSOLUTE AUTO 0.1 K/mm3 (0.0-0.2); BASOPHILS PERCENT AUTO 0.5 % (0.0-1.0); EOSINOPHILS PERCENT AUTO 0.2 % (0.0-6.0); HEMATOCRIT 46.9 % (37.0-47.0); IMMATURE GRAN ABSOLUTE AUTO 0.08 K/mm3 (0.00-0.05); IMMATURE GRAN PERCENT AUTO 0.8 % (0.0-0.4); LYMPHOCYTES ABSOLUTE AUTO 1.1 K/mm3 (1.0-4.8); MEAN CORPUSCULAR HEMOGLOBIN 29.6 pg (28.0-32.0); MEAN CORPUSCULAR HGB CONC 34.1 g/dl (32.0-36.0); MEAN CORPUSCULAR VOLUME 86.7 fl (83.0-99.0); MEAN PLATELET VOLUME 9.4 fl (9.4-12.3); MONOCYTES ABSOLUTE AUTO 0.4 K/mm3 (0.0-0.8); MONOCYTES PERCENT AUTO 3.5 % (0.0-8.0); NEUTROPHILS ABSOLUTE AUTO 8.7 K/mm3 (1.8-7.7); PLATELET COUNT,PLT 317 K/mm3 (150-400); RED BLOOD CELL COUNT 5.41 M/mm3 (4.10-5.30); WHITE BLOOD CELL COUNT,WBC 10.33 K/mm3 (3.9-11.3)
[2024-05-31] MEDS: methylPREDNISolone Sodium Succinate 125 MG/2 ML SDV IVPUSH ONE (12:48)
[2024-05-31 13:30] LABS: A/G RATIO 0.9 (1-2); ALBUMIN 3.5 g/dl (3.4-5.0); ANION GAP 13.6 (5-15); BILIRUBIN TOTAL 0.5 mg/dL (0.2-1.0); C-REACTIVE PROTEIN 0.2 mg/dL (<0.30); CALCIUM 9.3 mg/dL (8.5-10.1); EST CRCL DRUG DOSING (CG) 43.18 mL/min; POTASSIUM,K 3.6 mEq/L (3.5-5.1); PROTEIN TOTAL,TP 7.3 g/dl (6.4-8.2)
[2024-05-31 13:34] LABS: TSH 2.233 uIU/mL (0.358-3.74)
[2024-05-31 17:17] VITALS: BP 125/62; PULSE 81
== END 2024-05-31 14:43 | disposition home or self-care (01) ==
LOC: JD.ED 11:40
DX: J44.1 Chronic obstructive pulmonary disease with (acute) exacerbation (principal); M54.6 Pain in thoracic spine; I10 Essential (primary) hypertension; J44.9 Chronic obstructive pulmonary disease, unspecified; Z79.899 Other long term (current) drug therapy
CPT/HCPCS: 36415; 71045; 80053; 83735; 83880; 84443; 84484; 85025; 86140; 93005; 94640; 96374; 99285; A9270; J2919

== ENCOUNTER 2024-07-17 16:09 | Emergency (ER) | payer MEDICARE, MEDICAID ==
[2024-07-17 16:52] LABS: BASOPHILS ABSOLUTE AUTO 0.1 K/mm3 (0.0-0.2); BASOPHILS PERCENT AUTO 0.6 % (0.0-1.0); EOSINOPHILS ABSOLUTE AUTO 0.1 K/mm3 (0.0-0.4); EOSINOPHILS PERCENT AUTO 1.2 % (0.0-6.0); HEMATOCRIT 43.8 % (37.0-47.0); HEMOGLOBIN 14.7 gm/dl (12.0-16.0); IMMATURE GRAN ABSOLUTE AUTO 0.06 K/mm3 (0.00-0.05); IMMATURE GRAN PERCENT AUTO 0.6 % (0.0-0.4); LYMPHOCYTES ABSOLUTE AUTO 3.4 K/mm3 (1.0-4.8); LYMPHOCYTES PERCENT AUTO 31.7 % (24.0-44.0); MEAN CORPUSCULAR HEMOGLOBIN 30.2 pg (28.0-32.0); MEAN CORPUSCULAR HGB CONC 33.6 g/dl (32.0-36.0); MEAN CORPUSCULAR VOLUME 89.9 fl (83.0-99.0); MEAN PLATELET VOLUME 9.9 fl (9.4-12.3); MONOCYTES ABSOLUTE AUTO 0.7 K/mm3 (0.0-0.8); MONOCYTES PERCENT AUTO 6.2 % (0.0-8.0); NEUTROPHILS ABSOLUTE AUTO 6.3 K/mm3 (1.8-7.7); NEUTROPHILS PERCENT AUTO 59.7 % (41.0-71.0); PLATELET COUNT,PLT 317 K/mm3 (150-400); RED BLOOD CELL COUNT 4.87 M/mm3 (4.10-5.30); WHITE BLOOD CELL COUNT,WBC 10.61 K/mm3 (3.9-11.3)
[2024-07-17 17:03] LABS: INR 0.99; PROTHROMBIN TIME 10.5 SECONDS (9.7-12.0)
[2024-07-17 17:17] LABS: A/G RATIO 0.9 (1-2); ALANINE AMINOTRANSFERASE,ALT 22 U/L (14-59); ALBUMIN 3.4 g/dl (3.4-5.0); ALKALINE PHOSPHATASE 68 U/L (46-116); ANION GAP 12.5 (5-15); ASPARTATE AMNIOTRANSFERASE,AST 11 U/L (15-37); BILIRUBIN TOTAL 0.3 mg/dL (0.2-1.0); BLOOD UREA NITROGEN,BUN 14 mg/dL (7-18); CALCIUM 9.1 mg/dL (8.5-10.1); CARBON DIOXIDE,CO2 27 mEq/L (21-32); CHLORIDE,CL 105 mEq/L (98-107); CREATINE KINASE,CK 48 U/L (26-192); ESTIMATED GFR 62 mL/min (>60); GLUCOSE RANDOM 102 mg/dL (70-99); LIPASE 19 U/L (16-77); MAGNESIUM 1.9 mg/dL (1.8-2.4); POTASSIUM,K 3.5 mEq/L (3.5-5.1); PROTEIN TOTAL,TP 7.1 g/dl (6.4-8.2); SODIUM,NA 141 mEq/L (136-145); TROPONIN I HIGH SENSITIVITY 8 pg/mL (<=51)
[2024-07-17 17:55] LABS: BARBITURATE SCREEN,URINE NEGATIVE (CUTOFF=200); BENZODIAZEPINES SCREEN,URINE NEGATIVE (CUTOFF=150); BUPRENORPHINE SCREEN,URINE NEGATIVE (CUTOFF=10); METHADONE SCREEN, URINE NEGATIVE (CUTOFF=200); METHAMPHETAMINES SCREEN, URINE NEGATIVE (CUTOFF=500); OXYCODONE SCREEN,URINE NEGATIVE (CUT0FF=100); THC SCREEN,URINE 20 NG/ML NEGATIVE (CUTOFF=50)
[2024-07-17 18:12] LABS: AMPHETAMINES SCREEN, URINE NEGATIVE (CUTOFF=500)
[2024-07-17 18:47] VITALS: BP 122/73; PULSE 72
== END 2024-07-17 18:56 | disposition home or self-care (01) ==
LOC: JD.ED 16:09
DX: J44.9 Chronic obstructive pulmonary disease, unspecified (principal); F41.9 Anxiety disorder, unspecified; I10 Essential (primary) hypertension; M19.90 Unspecified osteoarthritis, unspecified site; Z79.899 Other long term (current) drug therapy; Z90.710 Acquired absence of both cervix and uterus
CPT/HCPCS: 36415; 71045; 71045-26; 80053; 80306; 80307; 82550; 83690; 83735; 83880; 84484; 85025; 85610; 93005; 93010; 99284; 99285

== ENCOUNTER 2024-07-24 13:22 | Emergency (ER) | payer MEDICARE, MEDICAID ==
[2024-07-24 13:31] VITALS: BP 136/83; PULSE 84
[2024-07-24] MEDS ORDERED: Sodium Chloride 0.9% 10 ML Syringe FLUSH PRN (13:35)
[2024-07-24 14:18] LABS: BASOPHILS ABSOLUTE AUTO 0.1 K/mm3 (0.0-0.2); BASOPHILS PERCENT AUTO 0.7 % (0.0-1.0); EOSINOPHILS ABSOLUTE AUTO 0.2 K/mm3 (0.0-0.4); EOSINOPHILS PERCENT AUTO 1.6 % (0.0-6.0); HEMATOCRIT 45.1 % (37.0-47.0); HEMOGLOBIN 14.9 gm/dl (12.0-16.0); IMMATURE GRAN ABSOLUTE AUTO 0.03 K/mm3 (0.00-0.05); IMMATURE GRAN PERCENT AUTO 0.3 % (0.0-0.4); LYMPHOCYTES ABSOLUTE AUTO 2.8 K/mm3 (1.0-4.8); LYMPHOCYTES PERCENT AUTO 28.6 % (24.0-44.0); MEAN CORPUSCULAR HEMOGLOBIN 29.7 pg (28.0-32.0); MEAN CORPUSCULAR VOLUME 89.8 fl (83.0-99.0); MEAN PLATELET VOLUME 9.4 fl (9.4-12.3); MONOCYTES ABSOLUTE AUTO 0.6 K/mm3 (0.0-0.8); MONOCYTES PERCENT AUTO 5.8 % (0.0-8.0); NEUTROPHILS ABSOLUTE AUTO 6.1 K/mm3 (1.8-7.7); PLATELET COUNT,PLT 328 K/mm3 (150-400); RED BLOOD CELL COUNT 5.02 M/mm3 (4.10-5.30)
[2024-07-24 14:43] LABS: ALBUMIN 3.7 g/dl (3.4-5.0); ANION GAP 11.8 (5-15); BILIRUBIN TOTAL 0.2 mg/dL (0.2-1.0); CALCIUM 10.1 mg/dL (8.5-10.1); CREATININE 0.8 mg/dL (0.55-1.02); EST CRCL DRUG DOSING (CG) 53.97 mL/min; POTASSIUM,K 3.8 mEq/L (3.5-5.1); PROTEIN TOTAL,TP 7.5 g/dl (6.4-8.2)
== END 2024-07-24 15:40 | disposition home or self-care (01) ==
LOC: JD.ED 13:22
DX: R00.2 Palpitations (principal); I10 Essential (primary) hypertension; J44.89 Other specified chronic obstructive pulmonary disease; M19.90 Unspecified osteoarthritis, unspecified site; Z88.5 Allergy status to narcotic agent; Z79.899 Other long term (current) drug therapy; Z79.51 Long term (current) use of inhaled steroids; Z90.710 Acquired absence of both cervix and uterus
CPT/HCPCS: 36415; 71045; 71045-26; 80053; 83735; 84484; 85025; 93005; 99285

== ENCOUNTER 2024-08-17 08:18 | Emergency (ER) | payer MEDICARE, MEDICAID ==
[2024-08-17] MEDS: Sodium Chloride 0.9% 10 ML Syringe FLUSH PRN (09:08)
[2024-08-17] MEDS: Aspirin 81 MG Tab.Chew PO ONE (09:19)
[2024-08-17 09:27] LABS: BASOPHILS ABSOLUTE AUTO 0.1 K/mm3 (0.0-0.2); BASOPHILS PERCENT AUTO 0.8 % (0.0-1.0); EOSINOPHILS ABSOLUTE AUTO 0.2 K/mm3 (0.0-0.4); EOSINOPHILS PERCENT AUTO 2.1 % (0.0-6.0); HEMOGLOBIN 14.6 gm/dl (12.0-16.0); IMMATURE GRAN ABSOLUTE AUTO 0.02 K/mm3 (0.00-0.05); IMMATURE GRAN PERCENT AUTO 0.3 % (0.0-0.4); LYMPHOCYTES ABSOLUTE AUTO 2.3 K/mm3 (1.0-4.8); LYMPHOCYTES PERCENT AUTO 32.3 % (24.0-44.0); MEAN CORPUSCULAR HEMOGLOBIN 29.4 pg (28.0-32.0); MEAN CORPUSCULAR HGB CONC 32.4 g/dl (32.0-36.0); MEAN CORPUSCULAR VOLUME 90.5 fl (83.0-99.0); MEAN PLATELET VOLUME 9.3 fl (9.4-12.3); MONOCYTES ABSOLUTE AUTO 0.5 K/mm3 (0.0-0.8); MONOCYTES PERCENT AUTO 6.4 % (0.0-8.0); NEUTROPHILS ABSOLUTE AUTO 4.2 K/mm3 (1.8-7.7); NEUTROPHILS PERCENT AUTO 58.1 % (41.0-71.0); PLATELET COUNT,PLT 324 K/mm3 (150-400); RED BLOOD CELL COUNT 4.97 M/mm3 (4.10-5.30); WHITE BLOOD CELL COUNT,WBC 7.19 K/mm3 (3.9-11.3)
[2024-08-17 10:12] LABS: A/G RATIO 0.9 (1-2); ALBUMIN 3.5 g/dl (3.4-5.0); ANION GAP 11.2 (5-15); BILIRUBIN TOTAL 0.6 mg/dL (0.2-1.0); BUN/CREATININE RATIO 13.8 (14-18); CALCIUM 9.5 mg/dL (8.5-10.1); CREATININE 0.8 mg/dL (0.55-1.02); EST CRCL DRUG DOSING (CG) 53.97 mL/min; MAGNESIUM 1.8 mg/dL (1.8-2.4); POTASSIUM,K 4.2 mEq/L (3.5-5.1); PROTEIN TOTAL,TP 7.4 g/dl (6.4-8.2)
[2024-08-17 12:40] VITALS: BP 134/75; PULSE 81
== END 2024-08-17 12:38 | disposition home or self-care (01) ==
LOC: JD.ED 08:18
DX: R06.02 Shortness of breath (principal); R07.89 Other chest pain; T46.1X5A Adverse effect of calcium-channel blockers, initial encounter; T44.7X5A Adverse effect of beta-adrenoreceptor antagonists, initial encounter; I10 Essential (primary) hypertension; J44.89 Other specified chronic obstructive pulmonary disease; Z90.710 Acquired absence of both cervix and uterus; Z79.899 Other long term (current) drug therapy; Z88.5 Allergy status to narcotic agent
CPT/HCPCS: 36415; 71045; 80053; 83735; 84484; 85025; 93005; 99285; A9270; 93010; 99283